=== PATIENT | male | born 1990 | race Caucasian/White ===

== ENCOUNTER 2018-02-03 16:36 | Emergency (ER) | payer OTHER, SELFPAY ==
[2018-02-03 16:47] VITALS: BP 130/65; PULSE 60; RESP 14; TEMP 36.7; O2SAT 98; BMI 25.7
--- NOTE | 2018-02-03 16:52 | ED_ITS ---
HPI - URI/Sore Throat <VALE Nunn - Last Filed: 02/03/18 22:28> General Chief Complaint: Upper Respiratory Symptoms Stated Complaint: RUNNY NOSE AND LEFT EYE INFECTION HEADACHE Time Seen by Provider: 02/03/18 16:51 Source: patient Mode of arrival: ambulatory Limitations: no limitations History of Present Illness HPI Narrative: 27-year-old healthy male here for complaint of having nasal congestion and headache for the past Five days. He denies having any fevers. He does state that he has had nasal drainage as well. He reports that today he woke up with some redness and watering into his left eye. positive p.o. intake. He denies any visual disturbances. He denies any pain into the left eye although slight irritation. He denies any other concerns or complaints at this time. Related Data Allergies Allergy/AdvReac Type Severity Reaction Status Date / Time No Known Drug Allergies Allergy Verified 02/03/18 16:47 Review of Systems <VALE Nunn - Last Filed: 02/03/18 22:28> Constitutional Denies chills, Denies fever(s), Denies lethargy and Denies weakness Eyes Reports irritation ENT Ears, Nose, Mouth, and Throat: Reports nasal congestion Cardiovascular Denies chest pain, Denies irregular heart rhythm, Denies lightheadedness, Denies palpitations, Denies dyspnea, Denies dyspnea on exertion and Denies orthopnea Respiratory Denies cough, Denies dyspnea, Denies dyspnea on exertion and Denies wheezing Gastrointestinal Gastrointestinal: Denies abdominal pain, Denies change in bowel habits, Denies diarrhea, Denies nausea and Denies vomiting Genitourinary Denies hematuria, Denies flank pain, Denies urinary incontinence and Denies urinary urgency Musculoskeletal Denies back pain, Denies muscle weakness, Denies numbness and Denies tingling Integumentary/Breasts Denies pruritus, Denies erythema, Denies rash and Denies wounds Neurologic Denies confusion, Denies numbness, Denies tingling and Denies weakness Psychiatric Denies anxiety, Denies confusion, Denies depression, Denies homicidal ideation and Denies suicidal ideation Endocrine Denies palpitations Hematologic/Lymphatic Denies easy bruising Allergic/Immunologic Denies wheezing Exam <VALE Nunn - Last Filed: 02/03/18 22:28> Initial Vital Signs Initial Vital Signs: Vital Signs Temperature 98.0 F 02/03/18 16:47 Pulse Rate 60 02/03/18 16:47 Respiratory Rate 14 02/03/18 16:47 Blood Pressure 130/65 02/03/18 16:47 Pulse Oximetry 98 02/03/18 16:47 Const General: cooperative and well developed Nutritional Appearance: well nourished Orientation: alert, awake, oriented x3 and not confused [facility] Head: normal to inspection and normocephalic Nose: external nose normal Face and sinus: normal facial exam, sinuses nontender and face symmetric Mouth: oral mucosae normal, oropharynx normal and moist mucous membranes Eyes General: appearance normal, both eyes and all related structures Eyelids: eyelids normal Conjunctivae: conjunctival abnormality left conjunctival injection Sclera: scleral abnormality left scleral injection Pupils: PERRL EOM: EOM intact bilaterally Resp Effort & Inspection: normal respiratory effort, able to speak in complete sentences, no respiratory distress and no use of accessory muscles Auscultation: clear to auscultation bilaterally, no rales, no rhonchi and no wheezes Cardio Rate: regular rate Rhythm: regular rhythm Heart Sounds: no click, no gallops, no murmurs and no rubs Skin General: no rashes or lesions noted, No jaundice and No petechiae Neuro General: alert, oriented x3, gait normal and no focal motor deficits Speech: speech normal <Magdalena Valenzuela DO - Last Filed: 02/04/18 08:33> Initial Vital Signs Initial Vital Signs: Vital Signs Temperature 98.0 F 02/03/18 16:47 Pulse Rate 60 02/03/18 16:47 Respiratory Rate 14 02/03/18 16:47 Blood Pressure 130/65 02/03/18 16:47 Pulse Oximetry 98 02/03/18 16:47 Course <VALE Nunn - Last Filed: 02/03/18 22:28> Orders Ordered: Discontinued Medications Polymyxin/Trimethoprim Sulfate (Polytrim Prepack) 1 bottle MISC SEEINSTR ONE Stop: 02/03/18 17:39 Last Admin: 02/03/18 17:57 Dose: 1 drops Vital Signs - 8 hr 02/03/18 16:47 02/03/18 18:17 Temperature 98.0 F Pulse Rate 60 59 L Respiratory Rate 14 16 Blood Pressure 130/65 123/62 Pulse Oximetry 98 98 <Magdalena Valenzeula DO - Last Filed: 02/04/18 08:33> Orders Ordered: Discontinued Medications Polymyxin/Trimethoprim Sulfate (Polytrim Prepack) 1 bottle MISC SEEINSTR ONE Stop: 02/03/18 17:39 Last Admin: 02/03/18 17:57 Dose: 1 drops Vital Signs - 8 hr 02/03/18 16:47 02/03/18 18:17 Temperature 98.0 F Pulse Rate 60 59 L Respiratory Rate 14 16 Blood Pressure 130/65 123/62 Pulse Oximetry 98 98 MDM - URI/Sore Throat <VALE Nunn - Last Filed: 02/03/18 22:28> MDM Narrative Medical decision making narrative: signs and symptoms present as a viral upper respiratory infection Along with viral left conjunctivitis. Will empirically treat for bacterial conjunctivitis with Polytrim he was provided with a prepack in the emergency room. Plenty of fluids and rest. [id number] Tylenol or Motrin as needed for any discomfort. Saline irrigation to the nasal passages and hot showers to help with congestion. Follow up with primary care provider later this week. For any worsening symptoms return to the emergency room. Discharge Plan Departure Patient Disposition: Home Clinical Impression: Upper respiratory infection, Conjunctivitis of left eye Discharge Date/Time: 02/03/18 18:18 Interventions: ED Discharge Assessment Last Done: 02/03/18 18:17 Instructions: DI for Conjunctivitis, DI for Viral Upper Respiratory Infection - - Adult Activity Restrictions/Additional Instructions: signs and symptoms presents as a viral upper respiratory infection causing congestion to the sinuses/nasal passages. Redness and irritation left eye presents as a viral illness as well. However will cover for bacterial infection with abnormality antibiotic use as directed. plenty of fluids and rest. [id number] Tylenol or Motrin as needed for any discomfort. Saline irrigation to the nasal passages and hot showers to help with congestion. Follow up with primary care provider later this week. For any worsening symptoms return to the emergency room. Referrals: [facility] [Provider Group] <Magdalena Valenzuela DO - Last Filed: 02/04/18 08:33> Cosign ED Attending Cosignature Attestation: I was immediately available in the department for consultation. Documentation has been reviewed. I agree with assessment and plan.
[2018-02-03] MEDS: POLYMY B/TRIMETH OPHTH PREPACK 1 BOTTLE MISC (17:57)
[2018-02-03 18:17] VITALS: BP 123/62; PULSE 59; RESP 16; O2SAT 98
--- NOTE | 2018-02-03 18:19 | PC.NURSE ---
upper respiratory sxs for one week, today with left eye redness and irritation.
== END 2018-02-03 18:18 | disposition home or self-care (01) ==
PROVIDERS: Emergency Provider Nurse Practitioner Family
DX: J06.9 Acute upper respiratory infection, unspecified (principal); H10.9 Unspecified conjunctivitis
CPT/HCPCS: 99283